=== PATIENT | male | born 1985 | race Caucasian/White ===

== ENCOUNTER 2016-09-04 20:26 | Emergency (ER) | payer BC ==
[2016-09-04 21:14] VITALS: BP 128/78
--- NOTE | 2016-09-04 21:42 | UC ---
Hand/Wrist HPI - HPI Summary HPI Summary: Pt reports that he was boxing in [employer] training yesterday and did not have his right hand wrapped correctly. Pt woke with c/o right hand swelling and tenderness. Pt has small abrasions over each knuckle on right hand - History Of Current Complaint Chief Complaint: UCUpperExtremity Stated Complaint: RT HAND INJURY Time Seen by Provider: 09/04/16 21:25 Hx Obtained From: Patient ?: No Onset/Duration: Sudden Onset, Lasting Hours, Still Present Severity Initially: Mild Severity Currently: Mild Character Of Pain: Dull, Aching Aggravating Factor(s): Movement Alleviating: Rest Associated Signs And Symptoms: Positive: Swelling, Redness - Risk Factors Compartment Syndrome Risk Factors: Pain - Allergies/Home Medications Allergies/Adverse Reactions: Allergies Allergy/AdvReac Type Severity Reaction Status Date / Time Sulfa Drugs Allergy Unknown Verified 09/04/16 21:14 Reaction Details PMH/Surg Hx/FS Hx/Imm Hx Previously Healthy: Yes - Surgical History Surgical History: Yes Surgery Procedure, Year, and Place: Tonsillectomy. Appendectomy. LEFT ARM FX REPAIR WITH PLACEMENT OF HARDWARE AND REMOVAL PLATE IN LEFT ARM - Family History Known Family History: Positive: None - Social History Occupation: Employed Full-time Lives: With Family Alcohol Use: None Substance Use Type: None Smoking Status (MU): Never Smoked Tobacco Have You Smoked in the Last Year: No Review of Systems Constitutional: Negative Skin: Other - erytheam, mild to dorsal lateral aspect of right hand, 5th metacarpal Eyes: Negative ENT: Negative Respiratory: Negative Cardiovascular: Negative Gastrointestinal: Negative Genitourinary: Negative Motor: Other - c/o tenderness with ROM right hand Neurovascular: Negative Musculoskeletal: Arthralgia - right hand metacarpals, 4 & 5, Edema, Myalgia Neurological: Negative Psychological: Negative All Other Systems Reviewed And Are Negative: Yes Physical Exam Triage Information Reviewed: Yes Appearance: Well-Appearing Vital Signs: Initial Vital Signs Temp 99 F 09/04/16 21:08 Pulse 56 09/04/16 21:08 Resp 16 09/04/16 21:08 BP 128/78 09/04/16 21:08 Pulse Ox 99 09/04/16 21:08 Eye Exam: Normal ENT Exam: Normal Neck exam: Normal Respiratory Exam: Normal Musculoskeletal Exam: Other Musculoskeletal: Positive: Strength Intact, Edema @ - mild swelling right hand metacarpals, with mild erythema Neurological Exam: Normal Psychological Exam: Normal Skin Exam: Other - small amoutn erytheam right hand 4& 5th metacarpal, 4 healing abrasions each knuckle Hand/Wrist Course/Dx - Differential Dx/Diagnosis Differential Diagnosis/HQI/PQRI: Abrasion, Contusion, Sprain Provider Diagnoses: right hand contusion. abrasions right hand Discharge - Discharge Plan Condition: Stable Disposition: HOME Patient Education Materials: Contusion in Adults (ED), RICE Therapy (ED) Referrals: Tereso Ivey MD [Primary Care Provider] - If Needed
--- NOTE | 2016-09-04 22:35 | RAD ---
INDICATION: Right hand pain after boxing the previous night COMPARISON: Similar hand radiograph dated April 24, 2013 TECHNIQUE: 4 views of the right hand were obtained. FINDINGS: At the distal radial corner of the right small finger middle phalanx there is a focal lucency depicted best on the oblique image of the hand. This potentially could represent a small fracture and/or avulsion injury. The remaining visualized bones are intact and appropriately aligned. IMPRESSION: Cortical defect at the distal radial corner of the right small finger middle phalanx which could represent an acute traumatic injury. Please correlate to physical examination. If the patient's symptoms persist, follow-up imaging is recommended.
== END 2016-09-04 21:48 | disposition home or self-care (01) ==
LOC: UCCORT 20:26
DX: S60.221A Contusion of right hand, initial encounter (principal); S60.511A Abrasion of right hand, initial encounter; X58.XXXA Exposure to other specified factors, initial encounter; Y93.75 Activity, martial arts; Y92.9 Unspecified place or not applicable; Z88.2 Allergy status to sulfonamides
CPT/HCPCS: 99211; G0463